=== PATIENT | male | born 1995 | race Caucasian/White ===

== ENCOUNTER 2018-02-09 23:23 | Emergency (ER) | payer OTHER ==
[~2018-02-09] VITALS: Ht 177.8 cm; Wt 107.5 kg
[2018-02-09 23:25] VITALS: TEMP 37; Ht 177.8 cm; Wt 107.5 kg
--- NOTE | 2018-02-10 00:12 | EMERGENCY ROOM VISIT NOTE ---
History Report prepared by Oralia: Shea Fletcher Under the Supervision of: Dr. Jose Riley D.O. First contact with patient: 23:50 Chief Complaint: LACERATION/CUT (SUT/DERMABOND) Stated Complaint: HAND LAC/WC Nursing Triage Summary: patient cut open hand between right thumb and first finger prior to arrival trying to open a can. no bleeding noted at this time. History of Present Illness The patient is a 22 year old male who presents to the Emergency Room with complaints of an episode of a laceration occurring half an hour ago. The patient states that he was opening a can of [employer] when it slipped and he cut his thumb. The patient currently rates his pain as a 2/10 in severity. The patient denies the use of any blood thinners. He notes that his Tetanus shot is up to date. Source of History: patient Onset: half an hour ago Position: finger(s) (thumb) Symptom Intensity: 2/10 Quality: other (laceration) Timing: other (episode) Review of Systems See HPI for pertinent positives & negatives. A total of 6 systems reviewed and were otherwise negative. Past Medical & Surgical Medical Problems: (1) No Known Active Medical Problems Family History No pertinent family history Social History Smoking Status: Never Smoker Marital Status: single Housing Status: lives alone Occupation Status: employed Current/Historical Medications No Active Prescriptions or Reported Meds Allergies Coded Allergies: No Known Allergies (Unverified , 02/09/18) Physical Exam Vital Signs Date Time Temp Pulse Resp B/P (MAP) Pulse Ox O2 Delivery O2 Flow Rate FiO2 02/09/18 23:25 37.0 93 18 163/95 97 Room Air Physical Exam CONSTITUTIONAL/VITAL SIGNS: Reviewed / noted above. GENERAL: Non-toxic in appearance. INTEGUMENTARY: Warm, dry, and [place]. HEAD: Normocephalic. EYES: without scleral icterus or trauma. ENT/OROPHARYNX: clear and moist.. RESPIRATORY: No respiratory issues. CARDIOVASCULAR: Regular rate and rhythm. EXTREMITIES: Warm and well perfused. There is a 2.5 cm laceration to the right proximal thumb palmar side. No bleeding. Approximates well. Neurovascularly intact distally. Involves only up to the subcutaneous tissues. No tendon or ligament involvement. NEUROLOGICAL: Intact without focal deficits. PSYCHIATRIC: normal affect. MUSCULOSKELETAL: Normally developed with good muscle tone. Medical Decision & Procedures Procedure There is a 2.5 cm laceration to the right proximal thumb palmar side. No bleeding. Approximates well. Was secured with Dermabond and Steri Strips. Neurovascularly intact distally. Involves only up to the subcutaneous tissues. No tendon or ligament involvement. ED Course 567: Previous medical records were reviewed. The patient was evaluated in room A3. A complete history and physical examination was performed. I discussed the results and findings with the patient. He verbalized agreement of the treatment plan. The patient was discharged home. Medical Decision The patient presents with a laceration to the palmar aspect of the proximal thumb. No ligament, tendon, vascular or neuro involvement. Details listed above. It was approximated using Dermabond and reinforced with Steri-Strips. The patient wanted to avoid stitches. His tetanus shot is up-to-date. Medication Reconcilliation Current Medication List: was personally reviewed by me Blood Pressure Screening Patient's blood pressure: Elevated blood pressure Blood pressure disposition: Elevated BP felt to be situational Impression Primary Impression: Laceration Scribe Attestation The scribe's documentation has been prepared under my direction and personally reviewed by me in its entirety. I confirm that the note above accurately reflects all work, treatment, procedures, and medical decision making performed by me. Departure Information Dispostion Home / Self-Care Prescriptions No Active Prescriptions or Reported Meds Referrals No Doctor, Assigned (PCP) Forms HOME CARE DOCUMENTATION FORM, IMPORTANT VISIT INFORMATION Patient Instructions My [facility] Additional Instructions Avoid excessive wetness. Watch for redness, red streaks, increased swelling or pain as this could indicate infection. Follow-up with your doctor for further care and evaluation in 1-2 days. Return to the emergency department for worsening or new symptoms or any concerns. You have been examined and treated today on an emergency basis only. This is not a substitute for, or an effort to provide, complete comprehensive medical care. It is impossible to recognize and treat all injuries or illnesses in a single emergency department visit. It is therefore important that you follow up closely with your doctor. Call as soon as possible for an appointment.
[2018-02-10 00:23] VITALS: BP 118/70; PULSE 78; O2SAT 98
== END 2018-02-10 00:26 | disposition home or self-care (01) ==
LOC: C.EDB 23:24 → C.EDA 02-10 00:26
DX: S61.011A Laceration without foreign body of right thumb without damage to nail, initial encounter (principal); W26.8XXA Contact with other sharp object(s), not elsewhere classified, initial encounter

== ENCOUNTER 2018-07-18 22:40 | Emergency (ER) | payer OTHER ==
[~2018-07-18] VITALS: Ht 177.8 cm; Wt 104.6 kg
[2018-07-18 22:44] VITALS: TEMP 36.5; Ht 177.8 cm; Wt 104.6 kg
[2018-07-18] MEDS ORDERED: LIDOCAINE HCL 1% 20 ML VIAL ONE (22:53)
[2018-07-18] MEDS ORDERED: CEPHALEXIN 500MG HOME PACK 1 EA BTL PO ONE (23:00)
[2018-07-18] MEDS ORDERED: LIDOCAINE 1% BUFFERED INJ 20 ML VIAL INFIL ONE (23:00)
[2018-07-18] MEDS ORDERED: CEPH500C2 PO (23:42)
[2018-07-18 23:51] VITALS: BP 162/100; PULSE 90; O2SAT 97
--- NOTE | 2018-07-19 01:09 | EMERGENCY ROOM VISIT NOTE ---
ED Visit Note First contact with patient: 22:51 CHIEF COMPLAINT: Toe infection HISTORY OF PRESENT ILLNESS: This 22-year-old patient presents to the emergency department with family complaining of pain and swelling of the left great toe. Doesn't remember any injury to the area before it got swollen and tender. Patient states this is ongoing for 2 months. He just finished antibiotics but is unsure what he was taking. He states he took it once a day. The patient has not had a fever. There has been no discharge. The patient has tried squeezing at it. The patient's tetanus shot is up-to-date. REVIEW OF SYSTEMS: A 6 system review of systems was completed with positives and pertinent negatives listed in the HPI. ALLERGIES: None MEDICATIONS: None PMH: None. SOCIAL HISTORY: No drug use. PHYSICAL EXAM: Vital Signs: Reviewed Nurse's notes, temperature afebrile, vital signs hypertensive. GENERAL: Pleasant male, in no acute distress, nontoxic in appearance, well-developed, well-nourished. SKIN: There is erythema, swelling, and tenderness of the nail fold around the left great toe. There is fluctuance , no drainage. There is no pus under the nail. There is no lymphangitic streaking up the hand. Capillary refill less than two seconds. MUSCULOSKELETAL : The patient has full range of motion and strength of the left great toe and foot. Peripheral pulses 2+. ED COURSE: I examined the patient. The area of fluctuance of the left great toe with cleaned with Betadine. A digital block using lidocaine 1% buffered 2 mL's was used to anesthetize the area. An 11 blade was then used to make a 1 cm incision to drain the paronychia. A small amount of purulent pus was expressed and a culture was obtained. More was expressed with pressure until all of the pus was relieved. The area was thoroughly cleaned with sterile saline. The area was then dressed with bacitracin and a bandage. The patient tolerated the procedure well. He was placed in a postop shoe for comfort. He declined crutches. He was advised to follow-up clinical resource manager as this is a recurrent issue for him or the family care doctor in a few days or here in the ER sooner for severe pain, fevers, redness, worsening signs or symptoms or as needed. The patient was discharged home in stable condition. DIAGNOSIS: Paronychia of the left great toe DISCHARGE INSTRUCTIONS: As below Current/Historical Medications Scheduled Cephalexin Monohydrate (Keflex), 500 MG PO QID Allergies Coded Allergies: No Known Allergies (Unverified , 07/18/18) Vital Signs Date Time Temp Pulse Resp B/P (MAP) Pulse Ox O2 Delivery O2 Flow Rate FiO2 07/18/18 23:51 90 18 162/100 97 07/18/18 22:44 36.5 92 18 141/94 96 Room Air Medications Administered Medications (Trade) Dose Ordered Sig/Janak Route Start Time Stop Time Status Last Admin Dose Admin Cephalexin Monohydrate (Keflex 500MG Home Pack) 1 homepack NOW ONCE PO 07/18/18 23:00 07/18/18 23:01 DC 07/18/18 23:48 1 HOMEPACK Departure Information Impression Primary Impression: Acute paronychia of toe Dispostion Home / Self-Care Condition GOOD Prescriptions Cephalexin Monohydrate (KEFLEX) 500 Mg Cap 500 MG PO QID for 9 Days, #36 CAP Prov: Dilma Gutierrez .MILENA 07/18/18 Forms WORK / SCHOOL INSTRUCTIONS, HOME CARE DOCUMENTATION FORM, IMPORTANT VISIT INFORMATION Patient Instructions My [facility], ED Fingernail Infec Additional Instructions Antibiotic ointment and bandage to the areas until healed. Follow up with family doctor or return for any signs of infection (increasing redness, swelling , drainage, or fever). Keep covered when in sun until fully healed then SPF 50 or higher until scar healed. Wear postop shoe for comfort. Do not have it so tight that you cannot feel your toes. Cephalexin(Keflex) 500mg: Take one pill four times daily for 10 days for your skin infection. All antibiotics can cause diarrhea. If this occurs and you feel worse or it does not resolve in 1-2 days follow up with your doctor or return to the Emergency Department as this could be signs of serious underlying problems. Any medication can cause an allergic reaction, stop the pills immediately and return to the ER for rash, hives, breathing difficulties, or swelling. Ibuprofen(Motrin, Advil) may be used for fever or pain. Use 600mg every six hours as needed. Take with food. Avoid using more than 2400mg in a 24 hour period. Do not use 2400mg per day for more than three consecutive days without physician direction. Prolonged inappropriate use can lead to stomach upset or ulcers. (AND/OR) Acetaminophen(Tylenol) may be used for fever or pain. Use 1000mg every six hours as needed. Avoid using more than 3000mg in a 24 hour period. Rest and drink plenty of fluids. Continue current medications. Return to the ER for severe pain, persistent fevers, spreading redness, or any worsening of your condition. Follow up with your primary physician/clinical resource manager within 2-3 days for a recheck of the current condition.
--- NOTE | 2018-07-21 15:09 | Pharmacy Progress Note ---
ED Pharmacist Culture FollowUp Date of Service: Jul 21, 2018. L great toe paronychia drainage is growing CoN staph, few and our lab will not be reporting sensitivities I+D was performed in ED and pt was placed on Keflex on discharge. ABX not always required following I+D. CoN staph could represent skin antonella. Reviewed case w/ Dr Neves. Plan is to continue current Keflex Rx, no further action required.
== END 2018-07-18 23:52 | disposition home or self-care (01) ==
LOC: C.EDB 22:42
DX: L03.032 Cellulitis of left toe (principal)